=== PATIENT | male | born 1965 | race Caucasian/White ===

== ENCOUNTER → 2017-08-19 | Outpatient (CLI) | payer OTHER | END | disposition home or self-care (01) | LOC: LABWHC1 10:29 | PROVIDERS: ATTEND Orthopaedic Surgery | DX: Z01.812 Encounter for preprocedural laboratory examination (principal) | CPT/HCPCS: 87070 ==

== ENCOUNTER 2017-08-24 05:49 | Inpatient (IN) | payer OTHER ==
[2017-08-18 11:15] VITALS: BMI 26.1
--- NOTE | 2017-08-23 09:28 | HP ---
HISTORY AND PHYSICAL REASON FOR ADMISSION: Surgery scheduled for Peter Perez is a 52-year-old patient seen with symptomatic left hip osteoarthritis. We discussed treatment options. He elected to proceed with left total hip arthroplasty. Consent was obtained. Medical clearance provided by Dr. Hernan Thompson. PAST MEDICAL HISTORY: Noncontributory. PAST SURGICAL HISTORY: Noncontributory. MEDICATIONS ARE: Ibuprofen as needed. ALLERGIES: None reported. SOCIAL HISTORY: Patient denies current tobacco use. PHYSICAL EXAMINATION: Evaluation of his left hip, there is diffuse tenderness. Limited range of motion with pain. Positive hip impingement sign. Straight leg raise is negative. Distal neurovascular exam is intact. RADIOGRAPHS: Radiographs of the left hip reveal severe osteoarthritis. IMPRESSION: Left hip osteoarthritis. PLAN: Left total hip arthroplasty. Surgery scheduled for 08/24/2017. MMODL / IJN: [id number] /
[~2017-08-24 05:49] MED LIST: ACETAMINOPHEN TAB 500 MG TAB PO ONE; DEXAMETHASONE SOD PHOSPHATE 10 MG/ML 1 ML VIAL IV ONE; LIDOCAINE 1% 20 ML VIAL (10MG/ML) FOR IV START INTRADERMA PRN; MELOXICAM 7.5 MG TAB PO ONE; MIDAZOLAM 2 MG/2 ML VIAL IV PRN; ONDANSETRON 4 MG/2 ML VIAL IVP ONE; SCOPOLAMINE 1.5MG/72HR PATCH TRANSDERM ONE; TRANEXAMIC ACID 1,000 MG in SODIUM CHLORIDE 0.9% 50 ML IVPB ONE; ceFAZolin 2 GM in SODIUM CHLORIDE 0.9% 100 ML IVPB ONE; ceFAZolin IN SWFI 2 GM/20 ML SYRINGE IVP ONE
[2017-08-24] MEDS: LACTATED RINGERS 1,000 ML IV SCH ×3 (06:36→23:30)
[2017-08-24] MEDS ORDERED: ROPIVACAINE 246.25 MG, EPINEPHrine 0.5 MG, KETOROLAC 30 MG, cloNIDine HCL/PF 80 MCG, WA... MISCELLANE ONE ×5 (07:27)
[2017-08-24] MEDS ORDERED: SODIUM CHLORIDE 0.9% 100 ML BAG ONE (07:30)
[2017-08-24] MEDS ORDERED: SUCCINYLCHOLINE CHLORIDE 100 MG/5 ML SYR IV ONE (07:30)
[2017-08-24] MEDS ORDERED: HYDROmorphone (PF) 1 MG/ML ONE (07:30)
[2017-08-24] MEDS ORDERED: TRANEXAMIC ACID 1,000 MG/10 ML VIAL ONE (07:30)
[2017-08-24] MEDS ORDERED: PROPOFOL 10 MG/ML 20 ML VIAL IV ONE (07:30)
[2017-08-24] MEDS ORDERED: GLYCOPYRROLATE 0.2 MG/ML 2 ML VIAL ONE (07:30)
[2017-08-24] MEDS ORDERED: fentaNYL (PF) 50 MCG/ML 2 ML AMP ONE (07:30)
[2017-08-24] MEDS ORDERED: MIDAZOLAM 2 MG/2 ML VIAL ONE (07:30)
[2017-08-24] MEDS ORDERED: ceFAZolin 1,000 MG in SODIUM CHLORIDE 0.9% 1,000 ML IRRIGATION ONE (08:19)
[2017-08-24] MEDS ORDERED: LACTATED RINGERS 1,000 ML IV ONE (08:30)
[2017-08-24] MEDS ORDERED: ONDANSETRON 4 MG/2 ML VIAL IVP PRN (10:06)
[2017-08-24] MEDS ORDERED: HYDROcodone/APAP 7.5-325MG 1 EACH TAB PO PRN ×2 (10:06)
[2017-08-24] MEDS ORDERED: hydrOXYzine PAMOATE 25 MG CAP PO PRN (10:06)
[2017-08-24] MEDS ORDERED: NALOXONE 0.4 MG/ML 1 ML VIAL IV PRN (10:06)
[2017-08-24] MEDS ORDERED: HYDROmorphone 2 MG/ML 1 ML SYRINGE IVP PRN (10:06)
[2017-08-24] MEDS ORDERED: HYDROmorphone 4 MG/ML 1 ML SYRINGE IVP PRN ×2 (10:06)
--- NOTE | 2017-08-24 10:06 | P.OP ---
Date of Procedure: 08/24/17 Preoperative Diagnosis: Left hip osteoarthritis Postoperative Diagnosis: Left hip osteoarthritis Procedure(s) Performed: Direct anterior left total hip arthroplasty Implants: 1. Depuy Corail KA size 12 press-fit femoral stem 2. Depuy pinnacle acetabular shell press-fit 58 mm 3. Depuy pinnacle polyethylene acetabular liner +4 neutral 36 mm ID 58 mm OD 4. Biolox delta ceramic femoral head +1.536 mm Anesthesia: GETA, local, spinal Surgeon: Reed Liu Pension Manager #1: Mike Velazquez Estimated Blood Loss (ml): 400 Pathology: other (Femoral head) Condition: stable Disposition: PACU Indications for Procedure: 52-year-old patient seen with symptomatic left hip osteoarthritis. After having treatment options discussed, he elected to proceed with total hip arthroplasty. Operative Findings: see description of procedure Description of Procedure: The patient was taken to the operative suite. Patient underwent a spinal anesthetic by the department of anesthesia. Patient was then transferred to the [place] table. Patient was given preoperative IV antibiotics and TXA. Both lower extremities were placed in standard leg spars. The hip was then prepped and draped in the normal sterile orthopedic fashion. A standard anterior incision was made beginning 3 cm lateral and 1 cm distal to the ASIS extending 10 cm. Dissection was then carried down through the subcutaneous soft tissues down to the fascia overlying the tensor fascia winston. An incision was now made through the fascia. Careful dissection was taken down exposing the tensor fascia winston muscle. A Cobra retractor was now placed along the medial femoral neck and a second one along the lateral femoral neck. The venous circumflex vessels were now identified, cauterized and clipped. We identified the anterior hip capsule. An incision was made through the hip capsule along the lateral border. Tag sutures were then placed along the anterior capsule and lateral capsule. We then performed a capsulotomy. Retractors were now placed around the femoral neck itself. A Cobra retractor was now placed along the anterior acetabulum. At this point the patient was experiencing some discomfort in the left hip. Anesthesia proceeded with a general endotracheal intubation. Good exposure was now noted of the femoral head/neck complex. Residual labrum was debrided out. We placed the extremity into 3 turns of fine traction. We were then able to introduce a skid in between the femoral head and acetabulum. A placed a awl into the femoral head. We took 2 turns of traction off the extremity. Rotation was now released. The femoral head was then dislocated without difficulty. Additional releasing was performed of the capsule. The head was then reduced. All traction was released. A femoral neck cut was now made with a sagittal saw. It was completed with an osteotome at the lateral neck area. The femoral head was now removed without difficulty. The extremity was now rotated to 60 of external rotation. It was locked in position. Residual labrum was now debrided out. Serial reaming was performed of the acetabulum. Once we reached the appropriate size and a trial was position and fit nicely. The appropriate size was now chosen opened and made available. The wound was irrigated with pulse lavage mechanical irrigation. It was introduced into the acetabulum without difficulty. The C-arm/ fluoroscopy was now brought into the operative field. We made sure we had a true AP pelvic view. We now under direct C-arm/fluoroscopy introduced into the acetabular component with appropriate version and inclination. It was well seated and stable. The C-arm was pulled back. An appropriate liner was introduced and clicked into position. It was felt to be stable. At this point retractors were removed. The extremity was now placed into 120 external rotation with no traction. The leg was now dropped to the ground and adducted. Appropriate retractors were now positioned along the proximal femur. We also placed our femoral look into position. Additional capsular releasing was performed to gain access to the proximal femur. We now used a box osteotome. A canal finder was now utilized. Serial broaching was now performed until we reached the appropriate size with good overall rotational stability. Appropriate calcar planing was performed. A trial head/neck was placed into position. The hip was now reduced. The C-arm/fluoroscopy was brought back into the operative field. A spot film was obtained of the nonoperative hip. A spot film was obtained of the trial components. Overlays were performed, we noted good overall alignment and positioning for determining leg length. The C- arm/fluoroscopy was pulled back. Retractors were repositioned and the hip was dislocated. The leg was again taken down to the ground and adducted. Appropriate retractors were repositioned as well as the femoral hook. All trial components were removed. The femoral implant was opened along with the femoral head. The femoral implant was introduced with good purchase and fixation noted. The femoral head was introduced with good positioning and fixation noted. The wound was irrigated with pulse lavage mechanical irrigation. Retractors were now removed. The hip was now reduced. There appeared be good positioning of the hip. This was confirmed on fluoroscopy in a spot image was obtained to document the procedure. Bipolar cautery had been utilized intermittently through the procedure for hemostasis. The wound was irrigated copiously with pulse lavage mechanical irrigation. A second gram of TXA was given. The fascia was repaired with Vicryl suture. The subcutaneous soft tissues were repaired in layers with Vicryl suture. The skin was approximated with pernio/Dermabond. Sterile dressings were applied. Patient was then awakened, transferred to a bed and taken to recovery in stable condition. Baldev JACOBSON assisted with the procedure.
--- NOTE | 2017-08-24 10:15 | FL ---
EXAMINATION TYPE: FL guidance operating room DATE OF EXAM: 08/24/2017 HISTORY: Flouroscopy time 26 seconds of fluoroscopy provided. IMPRESSION: 1. Fluoroscopy time.
--- NOTE | 2017-08-24 10:16 | XR ---
EXAMINATION TYPE: XR Hip Limited LT DATE OF EXAM: 08/24/2017 COMPARISON: NONE HISTORY: Postop TECHNIQUE: One view submitted. FINDINGS: There is a prosthetic hip in near anatomic alignment. There is soft tissue edema and emphysema. IMPRESSION: 1. Postoperative change. Appears in near-anatomic alignment.
[2017-08-24] MEDS: HYDROmorphone 0.5 MG/0.5 ML SYRINGE IVP PRN ×2 (11:30→11:35)
[2017-08-24] MEDS: traMADol 50 MG TAB PO SCH ×3 (13:08→22:53)
[2017-08-24] MEDS: ceFAZolin IN SWFI 2 GM/20 ML SYRINGE IVP SCH ×2 (16:56→23:27)
[2017-08-24 20:30] VITALS: RESP 16
[2017-08-24] MEDS ORDERED: SENNOSIDES-DOCUSATE SODIUM 1 EACH TAB PO SCH (21:00)
[2017-08-25] MEDS: LACTATED RINGERS 1,000 ML IV SCH ×2 (06:42→11:15)
[2017-08-25 07:13] LABS: Basophils % (A) 0 %; Eosinophils # (A) 0.1 k/uL (0-0.7); Eosinophils % (A) 2 %; HGB 11.1 gm/dL (13.0-17.5); Lymphocytes # (A) 1.8 k/uL (1.0-4.8); Lymphocytes % (A) 26 %; MCH 31.4 pg (25.0-35.0); MCHC 31.8 g/dL (31.0-37.0); MCV 98.8 fL (80.0-100.0); Mean Platelet Volume 6.8; Monocytes # (A) 0.4 k/uL (0-1.0); Monocytes % (A) 5 %; Neutrophils # (A) 4.6 k/uL (1.3-7.7); Neutrophils % (A) 65 %; Platelet Count 194 k/uL (150-450); RBC 3.55 m/uL (4.30-5.90); RDW 13.5 % (11.5-15.5)
[2017-08-25 07:29] LABS: Anion Gap 7 mmol/L; Blood Urea Nitrogen 18 mg/dL (9-20); Calcium 8.8 mg/dL (8.4-10.2); Carbon Dioxide 30 mmol/L (22-30); Chloride 101 mmol/L (98-107); Glucose 89 mg/dL (74-99); Sodium 138 mmol/L (137-145)
[2017-08-25 08:04] VITALS: BP 108/64; PULSE 58; TEMP 98.6
[2017-08-25] MEDS: traMADol 50 MG TAB PO SCH ×2 (08:05→13:03)
[2017-08-25] MEDS ORDERED: FAMOTIDINE 20 MG TAB PO SCH (09:00)
[2017-08-25] MEDS ORDERED: MELOXICAM 7.5 MG TAB PO SCH (09:00)
[2017-08-25] MEDS ORDERED: ENOXAPARIN 40 MG/0.4 ML SYRINGE SQ SCH (09:00)
--- NOTE | 2017-08-25 09:33 | P.CONS ---
History of Present Illness - Reason for Consult Consult date: 08/25/17 Medical management - Chief Complaint s/p left total hip arthroplasty - History of Present Illness 52-year-old male who underwent elective left total hip arthroplasty on 08/24/[address] Thompson was consulted for medical management. The patient denies previous medical history except osteoarthritis. Past surgical history includes tonsillectomy and colonoscopy. He is a lifetime nonsmoker. Occasional alcohol use. Prior to surgery, patient did not take any medications at home. The patient was seen and examined at the bedside on rounds with Dr. Thompson. Patient is awake and alert. Sitting up in bed. Patient states his pain is tolerable at this time. Voiding without difficulty. Vital signs have remained stable. Blood pressure 108/64. Afebrile. Heart rate 58-64. On room air with oxygen saturations greater than 92%. Denies shortness of breath or coughing. Denies chest pain or pressure. Patient states he is using his incentive spirometer 10 times an hour while awake. He states he has been up ambulating in his room and has walked to the bathroom. Hemoglobin this morning is 11.1. White count 7.0. BMP within normal limits. Review of Systems GENERAL: Patient denies fever. Denies chills. EYES: Denies blurred vision. Denies vision changes. Denies eye pain. EARS, NOSE, MOUTH, & THROAT: Denies headache. Denies sore throat. Denies ear pain. RESPIRATORY: Denies cough. Denies shortness of breath. Denies sputum production. Denies hemoptysis. CARDIOVASCULAR: Denies chest pain or pressure. Denies palpitations. Denies arrhythmias. GASTROINTESTINAL: Denies abdominal pain. Denies diarrhea. Denies constipation. Denies nausea. Denies vomiting. Denies heartburn. Denies blood in the stool. GENITOURINARY: Denies urinary frequency. Denies burning. Denies dysuria. Denies cloudy urine. Denies blood in the urine. MUSCULOSKELETAL: Denies myalgias. Denies joint swelling. Denies decreased range of motion beyond patients baseline. INTEGUMENTARY: Denies pruitis. Denies rash. PSYCHIATRIC: Denies suicidal or homicial ideations. ENDOCRINE: Denies weight change. Denies polydipsia. Denies polyuria. HEMATOLOGIC: Denies bleeding disorders. Past Medical History Past Medical History: Chest Pain / Angina History of Any Multi-Drug Resistant Organisms: None Reported Past Surgical History: Tonsillectomy Additional Past Surgical History / Comment(s): COLONOSCOPY Past Anesthesia/Blood Transfusion Reactions: No Reported Reaction Past Psychological History: No Psychological Hx Reported Smoking Status: Never smoker Past Alcohol Use History: Occasional Past Drug Use History: None Reported - Past Family History Mother Family Medical History: No Reported History Medications and Allergies Home Medications Medication Instructions Recorded Confirmed Type No Known Home Medications [No 08/10/14 08/24/17 History Known Home Medications] Allergies Allergy/AdvReac Type Severity Reaction Status Date / Time No Known Allergies Allergy Verified 08/24/17 11:12 Physical Exam Vitals: Vital Signs Temp Pulse Pulse Resp BP Pulse Ox 08/25/17 07:00 98.6 F 58 L 16 108/64 96 08/25/17 02:00 98.2 F 64 16 122/61 97 08/24/17 20:29 98.6 F 59 L 16 117/63 97 08/24/17 13:30 47 L 113/66 08/24/17 13:15 56 L 118/61 08/24/17 13:00 58 L 123/68 08/24/17 12:45 53 L 115/67 08/24/17 12:30 53 L 125/74 08/24/17 12:15 77 112/82 08/24/17 12:00 58 L 120/59 08/24/17 11:45 98.4 F 53 L 15 114/59 98 08/24/17 11:20 64 16 124/58 93 L 08/24/17 11:05 68 16 127/60 94 L 08/24/17 10:50 59 L 16 120/58 99 08/24/17 10:38 63 16 132/63 98 08/24/17 10:23 98.2 F 73 16 144/66 99 Intake and Output 08/24/17 08/25/17 08/25/17 22:59 06:59 14:59 Intake Total 240 640 220 Output Total 375 Balance -135 640 220 Intake: IV 640 Lactated Ringers 1,000 ml 640 @ 80 mls/hr IV .[id number] [facility] Rx#:[id number] Intake, IV Titration 240 Amount Lactated Ringers 1,000 ml 240 @ 80 mls/hr IV .[id number] [facility] Rx#:[id number] Oral 220 Output: Urine 375 Other: Voiding Method Toilet Toilet Urinal Urinal GENERAL: This is a 52-year-old male in no apparent distress at the time of examination. Pleasant and cooperative. HEENT: Head is atraumatic, normocephalic. Pupils are equal, round, and reactive to light. Sclerae anicteric. Conjunctivae are clear. Mucus membranes of the mouth are moist. Neck is supple. RESPIRATORY: Clear to ausculation. No wheezes, rales, or rhonchi. No use of accessory muscles. Patient maintaining oxygen saturation greater than 92%. No chest wall tenderness is noted on palpation or with deep breathing. CARDIOVASCULAR: Regular rate and rhythm. S1 and S2 noted. No systolic or diastolic murmur auscultated. No JVD noted. No S3 or S4 noted. GASTROINTESTINAL: No distention noted. Abdomen soft and round. Normal active bowel sounds auscultated x 4 quadrants. No pain or tenderness noted upon palpation. INTEGUMENTARY: Surgical site without erythema or drainage. No cyanosis. No jaundice. No rashes noted. No cellulitis noted. EXTREMITIES: 2+ peripheral pulses. No evidence of peripheral edema. No calf tenderness noted. NEUROLOGIC: Cranial nerves II-XII intact. PSYCHIATRIC: Awake, alert, and oriented X 3. Appropriate affect. Intact judgement and insight. Results CBC & Chem 7: 08/25/17 06:43 18 06:43 Labs: Abnormal Lab Results - Last 24 Hours (Table) 18 Range/Units 06:43 RBC 3.55 L (4.30-5.90) m/uL Hgb 11.1 L (13.0-17.5) gm/dL Hct 35.0 L (39.0-53.0) % Assessment and Plan Plan: ASSESSMENT: Osteoarthritis, s/p left total hip arthroplasty, POD #1 PLAN: Continue postoperative surgical care per Dr. Liu Monitor labs Encourage ambulation Incentive spirometer 10 times an hour while awake Pain control GI prophylaxis: Pepcid 20 mg by mouth daily DVT prophylaxis: Lovenox 40 mg subcu daily Monitor vital signs and address as appropriate Discharge planning: Patient to return home when stable Further recommendations pending patient's course Patient is cleared for discharge from a medical standpoint when okay with attending physician Nurse practitioner note has been reviewed by physician. Signing provider agrees with the documented findings, assessment, and plan of care.
--- NOTE | 2017-08-25 11:24 | P.PN ---
Subjective Progress Note Date: 08/25/17 Principal diagnosis: Status post left total hip arthroplasty Patient seen today resting in his hospital bed, he appears comfortable. His is present with him at bedside. He is ambulating well with therapy, he'll utilize stairs. He is urinating on his own. He denies any headaches, lightheadedness, chest pain or shortness of breath. Objective - Vital Signs Vital signs: Vital Signs Temp 98.6 F 08/25/17 07:00 Pulse 58 L 08/25/17 07:00 Resp 16 08/25/17 07:00 BP 108/64 08/25/17 07:00 Pulse Ox 96 08/25/17 07:00 Intake & Output 08/24/17 08/25/17 08/25/17 18:59 06:59 18:59 Intake Total 1661 880 220 Output Total 400 375 Balance 1261 505 220 Weight 82.554 kg Intake: IV 1661 640 Lactated Ringers 1,000 ml 160 640 @ 80 mls/hr IV .[id number] [facility] Rx#:[id number] Intake, IV Titration 240 Amount Lactated Ringers 1,000 ml 240 @ 80 mls/hr IV .[id number] [facility] Rx#:[id number] Oral 220 Output: Urine 375 Estimated Blood Loss 400 Other: Voiding Method Toilet Toilet Urinal - Exam Left lower extremity: Incision is clean, dry, and intact. The prineo tape is in good condition. There is minimal soft tissue swelling and ecchymosis surrounding the medial and lateral aspects of the incision. Calf is soft, no tenderness with palpation. Plantar flexion, dorsiflexion, EHL, FHL are intact. Sensory exam to light touch throughout the extremity is intact, dorsal pedis pulses 2+. - Labs CBC & Chem 7: 08/25/17 06:43 08/25/17 06:43 Labs: Abnormal Lab Results - Last 24 Hours (Table) 08/25/17 Range/Units 06:43 RBC 3.55 L (4.30-5.90) m/uL Hgb 11.1 L (13.0-17.5) gm/dL Hct 35.0 L (39.0-53.0) % Assessment and Plan Plan: Assessment: 1. Postop day #1 status post left total hip arthroplasty Plan: 1. Pain control, we'll discharge home on oral medication 2. Home nursing and physical therapy after discharge 3. Wound care instructions were discussed 4. Icing and elevating techniques discussed 5. GI and DVT prophylaxis, aspirin 325 mg twice a day 6. Medical recommendations 7. Discharge planning: Patient will be likely discharged home today Time with Patient: Less than 30
--- NOTE | 2017-08-25 11:27 | P.DS ---
Providers Date of admission: 08/24/17 05:49 Expected date of discharge: 08/25/17 Attending physician: Reed Liu Consults: 08/24/17 10:06 Consult Physician Routine Consulting Provider: Doug Thompson Reason/Comments: Medical management Do you want consulting provider notified?: Yes Primary care physician: Doug Thompson [facility] Course: Date of admission: 08/24/2017 Date of discharge: 08/25/2017 Admission diagnosis: Status post left total hip arthroplasty Discharge diagnosis: Same Attending physician: Dr. Liu Surgical procedures: Left total hip arthroplasty Brief history: Patient is a 52-year-old male with a history of progressive primary left hip osteoarthritis. At this point patient has failed conservative treatment measures and has opted to proceed with a elective left total hip arthroplasty. Hospital course: Details of patient's surgery can be found in operative report. Patient tolerated the procedure well and was subsequently transported to orthopedic floor. Patient's orthopeidc and medical care was provided daily. Patient had daily laboratory tests performed for evaluation of overall blood counts. Patient had daily physical therapy to include strengthening range of motion as well as education with walker ambulation. Patient was treated with Lovenox for their postoperative DVT prophylaxis during their inpatient stay. Patient was noted to have a relatively uneventful postoperative course. Patient reported satisfactory pain control with oral pain medications by postoperative day 0. Patient showed satisfactory progress with physical therapy. Patient moved steadily through the program and had no difficulty meeting the goals by postoperative day 1. Given patient's otherwise satisfactory course and having met physical therapy goals, plan is to discharge patient home on postoperative day 1. Discharge condition/disposition: Patient will be discharged home in stable condition. Discharge medications: Instructions are given on resumption of patient's normal daily medications per primary care recommendation, in addition patient will be prescribed Andrew 7.5 mg/325 mg, tramadol 50 mg, Colace 100 mg, Pepcid 20 mg, aspirin 325 mg. Discharge instructions: 1. Wound care and infection precautions, keep incision dry and covered while showering, no lotions, creams, moisturizers. No soaking, tubs, pools, hottubs. Do not scrub over the incision. 2. Weight-bear as tolerated with walker / cane until follow-up. 3. Ice and elevate when necessary. Do not exceed 20 minutes per hour with ice pack. 4. Utilize compression sleeve until seen at first follow up appointment. 5. Visiting nursing care. 6. Home physical therapy. 7. Pain meds and anticoagulants per prescription. 8. Pain medication has potential to cause constipation. Increase oral fluid and fiber intake. Contact primary care provider if you have not had a bowel movement within 48 hours after discharge 9. No anti-inflammatory medication until discussed at first post operative visit, this including Motrin, Aleve, Mobic, Diclofenac. 10. Follow up in office at 2 weeks postop with Baldev Velazquez PA-C 11. Follow up with your primary care doctor 7-10 days after discharge. 12. Contact [facility] with any questions, . Procedures: Left total hip arthroplasty Patient Condition at Discharge: Good Plan - Discharge Summary Discharge Rx Participant: Yes New Discharge Prescriptions: New Aspirin 325 mg PO BID #60 tab Docusate [Colace] 100 mg PO DAILY #30 capsule Famotidine [Pepcid] 20 mg PO DAILY #30 tablet HYDROcodone/APAP 7.5-325MG [Andrew 7.5] 1 each PO Q6HR PRN #40 tab PRN Reason: Pain traMADol HCl [Ultram] 50 mg PO Q6H PRN #30 tab PRN Reason: Pain Discharge Medication List Aspirin 325 mg PO BID #60 tab 08/25/17 [Rx] Docusate [Colace] 100 mg PO DAILY #30 capsule 08/25/17 [Rx] Famotidine [Pepcid] 20 mg PO DAILY #30 tablet 08/25/17 [Rx] HYDROcodone/APAP 7.5-325MG [Andrew 7.5] 1 each PO Q6HR PRN #40 tab 08/25/17 [Rx] traMADol HCl [Ultram] 50 mg PO Q6H PRN #30 tab 08/25/17 [Rx] Follow up Appointment(s)/Referral(s): Mike Velazquez PAC [PHYSICIAN [employer]DER] - 2 Weeks Activity/Diet/Wound Care/Special Instructions: Orthopedic Discharge Instructions: 1. Wound care and infection precautions, keep incision dry and covered while showering, no lotions, creams, moisturizers. No soaking, pools, hot tubs. Do not scrub over incision. 2. Weight-bear as tolerated with walker / cane until follow-up. 3. Ice and elevate when necessary. Do not exceed 20 minutes per hour with ice pack. 4. Utilize compression sleeve until seen at first follow up appointment. 5. Visiting nursing care. 6. Home physical therapy. 7. Pain meds and anticoagulants per prescription. 8. Pain medication has potential to cause constipation. Increase oral fluid and fiber intake. Contact primary care provider if you have not had a bowel movement within 48 hours after discharge. 9. No anti-inflammatory medication until discussed at first post operative visit, this including Motrin, Aleve, Mobic, Diclofenac. 10. Follow up in office at 2 weeks postop with Baldev Velazquez PA-C 11. Follow up with your primary care doctor 7-10 days after discharge. 12. Contact [facility] with any questions, . Discharge Disposition: HOME WITH HOME HEALTH SERVICES
== END 2017-08-25 13:35 | disposition home health service (06) | DRG 470 ==
LOC: 2ORMAIN 05:49 → 3SUR 10:23
PROVIDERS: ADMIT Orthopaedic Surgery; ATTEND Orthopaedic Surgery
PROC: 0SRB04A Replacement of Left Hip Joint with Ceramic on Polyethylene Synthetic Substitute, Uncemented, Open Approach (ICD-10-PCS; principal; 2017-08-24 07:30)
DX: M16.12 Unilateral primary osteoarthritis, left hip (principal); Z90.89 Acquired absence of other organs
CPT/HCPCS: 36415; 73501; 80048; 85025; 86850; 86900; 86901; 88300

== ENCOUNTER → 2024-02-25 | Outpatient (CLI) | payer OTHER | END | disposition home or self-care (01) | LOC: LABPRL 09:45 | PROVIDERS: ATTEND Family Medicine | DX: Z00.00 Encounter for general adult medical examination without abnormal findings | CPT/HCPCS: 80053; 80061; 83036 ==